=== PATIENT | female | born 1940 | race Caucasian/White ===

== ENCOUNTER 2017-06-05 12:41 | Emergency (ER) | payer OTHER ==
[~2017-06-05] VITALS: Ht 154.9 cm; Wt 80.1 kg
[~2017-06-05 12:41] MED LIST: ADVAIR HFA120 INHALA IH; ALBUTEROL SULF8.5 GM IH; ASPIRIN E.C.81 M1 PO; ASPIRIN81 M1 PO; ATIVAN0.5 MG PO; ATORVASTATIN CA80 MG PO; AUGMENTIN875 MG PO; BENAZEPRIL HCL20 MG PO; BENTYL20 MG PO; CALCIUM 500 MG1 EAC2 PO; CALCIUM 600 +1 EAC7 PO; DUONEB 2.5-0.5 M3 ML IH; FLEXERIL5 MG PO; FLUOXETINE HCL20 M1 PO; FLUOXETINE HCL20 MG PO; IMODIUM2 MG PO; LEVOTHROID,S0.088 MG PO; LITE COAT ASPI325 M1 PO; LOTREL 10/21 CAPSULE PO; Levothroid,Synthroid PO; NAPROSYN500 MG PO; NITROQUICK0.4 MG SL; NORCO 5/3251 TABLET PO; NORVASC10 MG PO; PANTOPRAZOLE SO40 MG PO; PERCOCET 5/31 TABLET PO; PROBIOTIC1 EAC1 PO; PROMETHAZINE12.5 M1 PO; PROPOXYPHEN-AP1 EAC2 PO; PROTONIX40 MG PO; Prozac PO; SIMVASTATIN80 M1 PO; SYNTHROID88 MCG PO; TOPROL XL50 MG PO; VISION VITAMIN1 EACH PO; VITAMIN D31000 UNIT PO; XIFAXAN200 MG PO; ZETIA10 MG PO
[2017-06-05 14:30] LABS: EOSINOPHIL (%) 1.1 % (0-5); EOSINOPHIL COUNT 0.1 K/uL (0-0.3); HEMATOCRIT 39.3 % (36.0-46.0); IMMATURE GRANULOCYTE (%) 0.5 % (0.0-0.7); IMMATURE GRANULOCYTE COUNT 0.1 K/uL; INSTRUMENT ABS NEUTROPHIL CT 9.6 K/uL; LYMPHOCYTE COUNT 1.8 K/uL (1.0-2.8); MCH 28.9 PG (29.0-34.0); MCHC 32.3 G/DL (30.0-36.0); MCV 89.3 FL (83-99); MEAN PLAT.VOLUME 9.7 uM^3 (9.5-12.4); MONOCYTE (%) 7.4 % (3-12); MONOCYTE COUNT 0.9 K/uL (0-0.8); NEUTROPHIL (%) 76.1 % (45-76); NEUTROPHIL COUNT 9.6 K/uL (1.8-6.4); PLATELET COUNT 246 K/uL (156-360); RBC DIS.WIDTH-CV 13.5 % (11.8-14.6); RBC DIS.WIDTH-SD 43.8 % (39-53); WHITE BLOOD COUNT 12.6 K/uL (4.1-10.2)
[2017-06-05 14:36] LABS: PROTHROMBIN TIME 11.3 SEC (10.2-12.9)
[2017-06-05 14:38] LABS: PTT 29.1 SEC (25-37)
[2017-06-05 14:39] LABS: CHLORIDE 108 mEq/L (99-109); POTASSIUM 4.3 mEq/L (3.7-5.4); SODIUM 143 mEq/L (136-147)
[2017-06-05 14:41] LABS: GLUCOSE 92 mg/dL (70-99)
[2017-06-05 14:43] LABS: ANION GAP 10 MEQ/L (2-14); TOTAL BILIRUBIN 0.3 mg/dL (0.0-1.0)
[2017-06-05 14:45] LABS: ALKALINE PHOSPHATASE 80 IU/L (3-129); GFR ESTIMATE (CALCULATED) 57 mL/min/
[2017-06-05 14:46] LABS: UREA NITROGEN (BUN) 10 mg/dL (9-23)
[2017-06-05 14:47] LABS: DIRECT BILIRUBIN 0.1 mg/dL (0.0-0.3)
[2017-06-05 14:48] LABS: LIPASE 27 U/L (1.0-51.0)
[2017-06-05 14:51] LABS: TROP-I INTERPRETATION NEGATIVE; TROPONIN-I < 0.01 ng/mL (0.0-0.30)
[2017-06-05 16:29] LABS: ADD MIUA? YES; BILIRUBIN NEGATIVE; BLOOD NEGATIVE; COLOR YELLOW ((YELLOW)); GLUCOSE (STRIP) NEGATIVE; KETONES 5; LEUKOCYTES TRACE; NITRITE NEGATIVE; PROTEIN (STRIP) NEGATIVE; UROBILINOGEN 0.2 MG/DL (0.2-1.0)
[2017-06-05 16:36] LABS: EPITHELIAL CELLS RARE /HPF; MUCUS TRACE /LPF; RED BLOOD CELLS 0-5 /HPF (0-5); UCUL ADDED? NO; WHITE BLOOD CELLS 0-5 /HPF (0-5)
[2017-06-05 16:57] LABS: BACTERIA RARE /HPF
[2017-06-05] MEDS ORDERED: CIPRO500 MG PO (17:05)
[2017-06-05] MEDS ORDERED: FLAGYL500 MG PO (17:05)
[2017-06-05 17:09] VITALS: BP 118/66
== END 2017-06-05 17:11 | disposition home or self-care (01) ==
LOC: EME 12:41
PROVIDERS: Emergency Medicine
DX: K57.32 Diverticulitis of large intestine without perforation or abscess without bleeding (principal); R10.9 Unspecified abdominal pain; R19.7 Diarrhea, unspecified; E78.5 Hyperlipidemia, unspecified; I10 Essential (primary) hypertension; K21.9 Gastro-esophageal reflux disease without esophagitis; Z87.891 Personal history of nicotine dependence
CPT/HCPCS: 74177; 80048; 80076; 81003; 83605; 83690; 83880; 84484; 85025; 85610; 85730; 93005; 99281; 99284; J7040